=== PATIENT | male | born 1940 | race Caucasian/White ===

== ENCOUNTER 2020-05-28 15:42 | Emergency (ER) | payer OTHER, MEDICAID ==
[~2020-05-28] VITALS: Ht 162.6 cm; Wt 76.7 kg
[2020-05-28 15:56] VITALS: Ht 162.6 cm; Wt 76.7 kg
[2020-05-28 17:50] VITALS: BP 136/67
== END 2020-05-28 17:50 | disposition home or self-care (01) ==
LOC: ED 15:42
DX: M25.561 Pain in right knee (principal); G89.29 Other chronic pain; M25.562 Pain in left knee; M54.5 Low back pain; I10 Essential (primary) hypertension
CPT/HCPCS: Q0162